=== PATIENT | female | born 1980 | race African-American/Black ===

== ENCOUNTER 2017-05-04 17:40 | Emergency (ER) | payer BC ==
[~2017-05-04] VITALS: Ht 165.1 cm; Wt 90.7 kg
--- NOTE | ~2017-05-04 | EKG ---
PATIENT: EVELIA BOND UNIT #: [id number] Ventricular Rate: 87 BPM Atrial Rate: 87 BPM P-R Interval: 148 ms QRS Duration: 98 ms Q-T Interval: 360 ms QTC Calculation(Bezet): 433 ms P [place]: 32 degrees Calculated R [place]: 46 degrees Calculated T [place]: 14 degrees Diagnosis Line: Normal sinus rhythm Diagnosis Line: Normal ECG Diagnosis Line: Diagnosis Line: Confirmed by DARIEN LACY MD ([id number]) on 05/04/2017 Diagnosis Line: 10:19:06 PM INTERPRETING MD: REGNIO RAMIREZ
--- NOTE | ~2017-05-04 | CR72 ---
[facility] A Service of [facility] RADIOLOGY TEXT RESULTS PATIENT: EVELIA BOND LOCATION: [facility] : 76 UNIT #: [id number] AGE: [address]: Bryce Woodard MD SEX: F ORDER DR: [id number] [facility] [address] [place], [place] [address] [id number] E MR#: [id number] Acc #: [id number] NAME: EVELIA BOND : 1980 SEX: F STUDY DATE/TIME: 05/04/2017 20:56 UNIT: [facility] ROOM: STUDY DESCRIPTION: CR Chest Single View Portable Attending Physician: Bryce Woodard M.D. Ordering Physician: Bryce Woodard M.D. Primary Care Physician: No Primary Care Physician MEDICAL IMAGING REPORT This report is preliminary unless electronic signature is present EXAM Portable chest 05/04/2017 HISTORY Chest pain and shortness breath for 1 week. No known injury. FINDINGS A single AP portable view of the chest shows both lungs to be clear. The heart is normal in size. The mediastinal contour is normal. No significant bone abnormalities are seen. IMPRESSION Normal portable chest. Dictated by... Augusto Fan M.D. THIS IS AN ELECTRONICALLY VERIFIED REPORT Augusto Fan M.D. at 05/05/2017 2:17 PM CARLY/feliciano TD: 05/05/2017 10:24 JOB #: [id number] MEDICAL IMAGING REPORT Page 1 of 1 COPY
[~2017-05-04 17:40] MED LIST: IBUPROFEN800 MG PO; MACROBID100 MG PO; PYRIDIUM PO
[2017-05-04 18:31] LABS: BASOPHIL# 0.1 X10e3 (0-0.3); BASOPHIL% 0.8 % (0-2.5); EOSINOPHIL# 0.2 X10e3 (0-0.7); EOSINOPHIL% 2.8 % (0.0-7.0); HEMATOCRIT 47.2 % (35.0-45.0); HEMOGLOBIN 15.6 gm/dL (12.0-16.0); LYMPHOCYTE# 3.8 X10e3 (1.0-3.5); LYMPHOCYTE% 47.4 % (17.0-45.0); MEAN CELL VOLUME 83.8 FL (83-96); MEAN CORPUSCULAR HEMOGLOBIN 27.6 PG (28-34); MEAN CORPUSCULAR HGB CONC 32.9 g/dL (30-36); MEAN PLATELET VOLUME 9.5 FL (6.5-11.5); MONOCYTE# 0.7 X10e3 (0-1.0); MONOCYTE% 8.2 % (3.0-12.0); NEUTROPHIL# 3.3 X10e3 (1.5-7.1); NEUTROPHIL% 40.8 % (40-75); PLATELET COUNT 307 X10e3 (140-420); RED BLOOD COUNT 5.64 X10e (3.90-5.30); RED CELL DISTRIBUTION WIDTH 13.4 % (11.0-15.5); WHITE BLOOD COUNT 8.1 X10e3 (4.0-10.5)
[2017-05-04 18:39] LABS: DIFF IND NO
[2017-05-04 19:01] LABS: ALBUMIN SERUM 4.5 g/dL (3.5-5.0); BILIRUBIN, DIRECT 0.1 mg/dL (0.0-0.2); BILIRUBIN,INDIRECT 0.2 mg/dL (0.0-0.9); BILIRUBIN,TOTAL 0.3 mg/dL (0.2-2.0); CALCIUM SERUM 9.8 mg/dL (8.4-10.2); GLOM FILT RATE Estimated 82.8 mL/min (>60); POTASSIUM 3.4 mmol/L (3.5-5.1)
[2017-05-04 19:42] LABS: POC - CKMB 1.7 ng/mL (0.0-7.9); POC - TROPONIN <0.05 ng/mL (<=0.05)
[2017-05-04 20:54] LABS: POC - CKMB 1.3 ng/mL (0.0-7.9); POC - TROPONIN <0.05 ng/mL (<=0.05)
== END 2017-05-04 21:50 | disposition home or self-care (01) ==
LOC: CED 17:40
PROVIDERS: Emergency Medicine
DX: R07.89 Other chest pain (principal); I10 Essential (primary) hypertension
CPT/HCPCS: 36415; 71010; 80048; 80076; 82553; 84484; 85025; 93005; 99285